=== PATIENT | male | born 1965 | race Caucasian/White ===

== ENCOUNTER 2017-09-17 08:37 | Day surgery (SDC) | payer OTHER ==
[~2017-09-17 08:37] MED LIST: CEFAZOLIN 2 GM/50 ML (PMX) 50 ML IVPB; SOD CHLORIDE 0.9% 1,000 ML IV
[2017-09-17] MEDS ORDERED: PROPOFOL 20 ML (11:07)
[2017-09-17] MEDS ORDERED: MIDAZOLAM 1 MG/ML 2 ML INJ (11:07)
[2017-09-17] MEDS ORDERED: ROCURONIUM 50 MG INJ (11:07)
[2017-09-17] MEDS ORDERED: ROPIVACAINE 0.2% 20 ML VIAL ×2 (11:07→11:09)
[2017-09-17] MEDS ORDERED: KETOROLAC 30 MG INJ (11:07)
[2017-09-17] MEDS ORDERED: METOCLOPRAMIDE 10 MG INJ (11:07)
[2017-09-17] MEDS ORDERED: ONDANSETRON 4 MG INJ (11:07)
[2017-09-17] MEDS ORDERED: CEFAZOLIN 1 GM INJ (11:31)
[2017-09-17] MEDS ORDERED: LIDOCAINE 2% (SDV) 5 ML INJ (11:31)
[2017-09-17] MEDS ORDERED: NEOSTIGMINE 3 MG/3 ML SYRINGE (11:48)
[2017-09-17] MEDS ORDERED: HYDROmorphONE (0.2 MG/ML) 10ML SYG IV ×2 (12:00)
[2017-09-17] MEDS ORDERED: OXYCODONE/ACETAMINOPHEN (5/325) TAB PO (12:00)
[2017-09-17] MEDS: BUPIVACAINE 0.25% (MPF) 30 ML INJ (12:02)
[2017-09-17] MEDS ORDERED: GLYCOPYRROLATE 0.4 MG INJ (12:08)
[2017-09-17] MEDS ORDERED: FENTAnyl 50 MCG/ML VIAL (12:09)
[2017-09-17] MEDS ORDERED: HYDROCODONE/APAP (5/325) TAB PO (12:30)
[2017-09-17] MEDS: HYDROmorphONE (0.2 MG/ML) 10ML SYG IV ×3 (12:39→12:53)
[2017-09-17] MEDS: ONDANSETRON 4 MG INJ IV (12:40)
[2017-09-17] MEDS: OXYCODONE/ACETAMINOPHEN (5/325) TAB PO (14:39)
== END 2017-09-17 16:30 | disposition home or self-care (01) ==
LOC: SDS 08:37
DX: K80.10 Calculus of gallbladder with chronic cholecystitis without obstruction (principal)
CPT/HCPCS: 47562; 88304

== ENCOUNTER 2018-08-26 13:26 | Emergency (ER) | payer OTHER ==
[2018-08-26 15:03] LABS: ADD MAN DIFF? NO
[2018-08-26 15:05] LABS: BASOPHILS % 0.6 % (0.0-2.0); EOSINOPHILS # 0.1 10^3/ul (0.0-0.5); EOSINOPHILS % 1.1 % (0.0-7.0); HEMATOCRIT 31.1 % (42.0-52.0); HEMOGLOBIN 11.5 g/dl (14.0-18.0); LYMPHOCYTES # 1.5 10^3/ul (0.8-2.9); LYMPHOCYTES % 23.4 % (15.0-51.0); MEAN CORPUSCULAR HEMOGLOBIN 35.3 pg (29.0-33.0); MEAN CORPUSCULAR VOLUME 95.4 fl (82.0-101.0); MEAN PLATELET VOLUME 9.3 fl (7.4-10.4); MONOCYTE # 0.5 10^3/ul (0.3-0.9); MONOCYTES % 7.4 % (0.0-11.0); NEUTROPHIL # 4.4 10^3/ul (1.6-7.5); NEUTROPHILS % 67.3 % (39.0-77.0); PLATELET COUNT 235 10^3/UL (140-415); RED BLOOD COUNT 3.26 10^6/ul (4.70-6.10); RED CELL DISTRIBUTION WIDTH 11.9 % (11.5-14.5)
[2018-08-26 15:05] LABS: WHITE BLOOD COUNT 6.5 10^3/ul (4.8-10.8)
[2018-08-26 15:21] LABS: ALANINE AMINOTRANSFERASE < 6 IU/L (13-69); ALBUMIN 4.9 g/dl (3.3-4.9); ALKALINE PHOSPHATASE 109 IU/L (42-121); ANION GAP 17 (5-13); ASPARTATE AMINO TRANSFERASE 16 IU/L (15-46); BILIRUBIN,INDIRECT 0.2 mg/dl (0-1.1); BILIRUBIN,TOTAL 0.2 mg/dl (0.2-1.3); BLOOD UREA NITROGEN 51 mg/dl (7-20); CALCIUM 11.8 mg/dl (8.4-10.2); CARBON DIOXIDE 24 mmol/L (21-31); CHLORIDE 100 mmol/L (97-110); CREATININE 9.64 mg/dl (0.61-1.24); Estimated GFR 6 mL/min (>60); GLUCOSE 123 mg/dl (70-220); LIPASE 371 U/L (23-300); POTASSIUM 3.8 mmol/L (3.5-5.1); SODIUM 141 mmol/L (135-144)
[2018-08-26 15:24] LABS: INR 0.92; PROTIME 12.5 Sec (11.9-14.9)
[2018-08-26 15:25] LABS: PARTIAL THROMBOPLASTIN TIME 35.4 Sec (23.0-35.0)
[2018-08-26 15:29] LABS: TOTAL PROTEIN 11.2 g/dl (6.1-8.1)
[2018-08-26 15:30] LABS: ALBUMIN/GLOBULIN RATIO 0.77
[2018-08-26 15:35] LABS: TROPONIN-I < 0.012 ng/ml (0.000-0.120)
[2018-08-26 18:14] LABS: URINE BLOOD (Dip) POC 2+ (NEGATIVE); URINE KETONES (Dip) POC Negative (NEGATIVE); URINE LEUKOCYTE EST (Dip) POC 1+ (NEGATIVE); URINE NITRITE (Dip) POC Negative (NEGATIVE); URINE TOTAL PROTEIN POC 3+ (NEGATIVE)
[2018-08-26] MEDS: CEPHALEXIN 500 MG CAP PO (19:36)
== END 2018-08-26 19:40 | disposition home or self-care (01) ==
LOC: E/R 13:26
DX: G51.0 Bell's palsy (principal); N39.0 Urinary tract infection, site not specified; D64.9 Anemia, unspecified; E83.52 Hypercalcemia; R40.2252 Coma scale, best verbal response, oriented, at arrival to emergency department; R40.2362 Coma scale, best motor response, obeys commands, at arrival to emergency department; R40.2142 Coma scale, eyes open, spontaneous, at arrival to emergency department; I12.9 Hypertensive chronic kidney disease with stage 1 through stage 4 chronic kidney disease, or unspecified chronic kidney disease; N18.9 Chronic kidney disease, unspecified
CPT/HCPCS: 36415; 70450; 71045; 80053; 81003; 83690; 84484; 85025; 85610; 85730; 87086; 93005; 99285-25

== ENCOUNTER 2018-08-31 00:43 | Emergency (ER) | payer OTHER ==
[2018-08-31] MEDS: ALBUTEROL 0.5% (NEB) 2.5 MG/0.5 ML AMP INH (01:15)
[2018-08-31 01:27] LABS: ADD MAN DIFF? NO
[2018-08-31 01:29] LABS: WHITE BLOOD COUNT 6.6 10^3/ul (4.8-10.8)
[2018-08-31 01:29] LABS: BASOPHILS % 0.6 % (0.0-2.0); EOSINOPHILS # 0.1 10^3/ul (0.0-0.5); EOSINOPHILS % 1.4 % (0.0-7.0); HEMATOCRIT 30.3 % (42.0-52.0); HEMOGLOBIN 11.7 g/dl (14.0-18.0); LYMPHOCYTES # 1.5 10^3/ul (0.8-2.9); LYMPHOCYTES % 22.3 % (15.0-51.0); MEAN CORPUSCULAR HEMOGLOBIN 35.9 pg (29.0-33.0); MEAN CORPUSCULAR VOLUME 92.9 fl (82.0-101.0); MEAN PLATELET VOLUME 9.5 fl (7.4-10.4); MONOCYTE # 0.7 10^3/ul (0.3-0.9); MONOCYTES % 10.2 % (0.0-11.0); NEUTROPHIL # 4.3 10^3/ul (1.6-7.5); NEUTROPHILS % 65.2 % (39.0-77.0); PLATELET COUNT 246 10^3/UL (140-415); POSITIVE DIFF @See below; RED BLOOD COUNT 3.26 10^6/ul (4.70-6.10); RED CELL DISTRIBUTION WIDTH 11.7 % (11.5-14.5)
[2018-08-31 01:45] LABS: ALKALINE PHOSPHATASE 93 IU/L (42-121); ANION GAP 23 (5-13); ASPARTATE AMINO TRANSFERASE 29 IU/L (15-46); BILIRUBIN,INDIRECT 0.4 mg/dl (0-1.1); BILIRUBIN,TOTAL 0.4 mg/dl (0.2-1.3); BLOOD UREA NITROGEN 76 mg/dl (7-20); CALCIUM 11.4 mg/dl (8.4-10.2); CARBON DIOXIDE 17 mmol/L (21-31); CHLORIDE 100 mmol/L (97-110); CREATININE 9.78 mg/dl (0.61-1.24); Estimated GFR 6 mL/min (>60); GLUCOSE 107 mg/dl (70-220); LIPASE 175 U/L (23-300); POTASSIUM 4.4 mmol/L (3.5-5.1); SODIUM 140 mmol/L (135-144)
[2018-08-31 01:51] LABS: ALANINE AMINOTRANSFERASE < 6 IU/L (13-69)
[2018-08-31 01:52] LABS: ALBUMIN/GLOBULIN RATIO 0.81; TOTAL PROTEIN 11.1 g/dl (6.1-8.1)
[2018-08-31 01:57] LABS: TROPONIN-I 0.048 ng/ml (0.000-0.120)
[2018-08-31 02:24] LABS: MEAN CORPUSCULAR HGB CONC 38.6 g/dl (32.0-37.0)
[2018-08-31] MEDS: morphine 4 MG/ML VIAL IV (07:46)
[2018-08-31] MEDS: ONDANSETRON 4 MG INJ IV (07:46)
[2018-08-31 07:51] LABS: ADD UMIC YES; UR ASCORBIC ACID NEGATIVE (NEGATIVE); UR BILIRUBIN (Dip) NEGATIVE (NEGATIVE); UR BLOOD (Dip) 1+ mg/dL (NEGATIVE); UR CLARITY CLEAR (CLEAR); UR COLOR YELLOW (YELLOW); UR GLUCOSE (Dip) NEGATIVE (NEGATIVE); UR HYALINE CAST FEW /HPF (NONE SEEN); UR KETONES (Dip) NEGATIVE (NEGATIVE); UR LEUKOCYTE ESTERASE (Dip) TRACE Leu/ul (NEGATIVE); UR NITRITE (Dip) NEGATIVE (NEGATIVE); UR RBC 13 /HPF (0-5); UR SPECIFIC GRAVITY (Dip) 1.014 (1.003-1.030); UR TOTAL PROTEIN (Dip) 2+ mg/dl (NEGATIVE); UR UROBILINOGEN (Dip) NEGATIVE (NEGATIVE); UR WBC 17 /HPF (0-5)
== END 2018-08-31 10:32 | disposition home or self-care (01) ==
LOC: E/R 00:43
DX: R73.9 Hyperglycemia, unspecified (principal); I12.0 Hypertensive chronic kidney disease with stage 5 chronic kidney disease or end stage renal disease; N18.6 End stage renal disease; F17.210 Nicotine dependence, cigarettes, uncomplicated
CPT/HCPCS: 36415; 71045; 80053; 81001; 83690; 84484; 85025; 87086; 93005; 94644; 96374; 96375; 99285-25